=== PATIENT | male | born 1955 | race Caucasian/White ===

== ENCOUNTER 2018-09-23 12:50 | Inpatient (IN) | payer OTHER ==
--- NOTE | 2018-09-23 13:33 | ER Document Report ---
ED Respiratory Problem - General Chief Complaint: Shortness Of Breath Stated Complaint: SHORTNESS OF BREATH Time Seen by Provider: 09/23/18 13:06 Notes: This is a 63-year-old male brought over from primary care doctor's office for evaluation of shortness of breath. Patient currently being treated for what he thinks is pneumonia. On Levaquin. Went in to have a follow-up visit today and was noted to be hypoxic with low oxygen saturations as well as increased work of breathing. Sent here for further evaluation. Patient states that he has lower extremity edema, worsening shortness of breath. Is supposed to use a CPAP device but does not. Does smoke 2 packs of cigarettes a day. [place] obese 5 [place] 9 male who weighs 175 kg TRAVEL OUTSIDE OF THE [place] IN LAST 30 DAYS: No - HPI Patient complains to provider of: CHF, COPD, Short of breath Duration: Continuous, Worse/persistent - Related Data Allergies/Adverse Reactions: enoxaparin sodium [From Lovenox] Allergy (Severe, Verified 09/23/18 12:52) Hallucinations Past Medical History - General Information source: Patient - Social History Smoking Status: Current Every Day Smoker Frequency of alcohol use: None Drug Abuse: None Lives with: Spouse/Significant other Family History: Reviewed & Not Pertinent - Past Medical History Cardiac Medical History: Reports: Hx Hypertension - on meds Denies: Hx Coronary Artery Disease, Hx Heart Attack Pulmonary Medical History: Reports: Hx Sleep Apnea Denies: Hx Asthma, Hx Bronchitis, Hx COPD, Hx Pneumonia Neurological Medical History: Denies: Hx Cerebrovascular Accident, Hx Seizures Musculoskeletal Medical History: Reports Hx Arthritis - mild Psychiatric Medical History: Reports: Hx Anxiety, Hx Depression Past Surgical History: Reports: Hx Orthopedic Surgery - bilat knees - Immunizations Hx Diphtheria, Pertussis, Tetanus Vaccination: No Hx Pneumococcal Vaccination: 01/26/13 Review of Systems - Review of Systems Notes: Constitutional: denies: Chills, Diaphoresis, Fever, Malaise, Weakness EENT: denies: Eye discharge, Blurred vision, Tearing, Double vision, Nose congestion, Nose discharge, Throat swelling, Mouth pain Cardiovascular: denies: Palpitations, Heart racing, Chest pain patient does report dyspnea on exertion as well as orthopnea Respiratory: Planes of cough and increased shortness of breath. No hemoptysis. Gastrointestinal: denies: Abdominal pain, Diarrhea, Nausea, Vomiting, Black stools, bright red blood in stool Genitourinary: denies: Burning, Dysuria, Discharge, Frequency, Flank pain, Hematuria Musculoskeletal: denies: Joint pain, Joint swelling, Muscle pain, Muscle stiffness, back pain. He does complain of lower extremity edema with oozing of his legs Hematologic/Lymphatic: denies: Anemia, Easy bleeding, Easy bruising, Blood clots Neurological/Psychological: denies: Confusion, Dementia, Depression, Loss of consciousness Skin: No lesions, no masses, no skin breakdown, no abscesses Physical Exam - Vital signs Vitals: Temp Pulse Resp BP Pulse Ox 98.6 F 125 H 18 142/77 H 78 L 09/23/18 12:57 09/23/18 12:57 09/23/18 12:57 09/23/18 12:57 09/23/18 12:57 Interpretation: Normal - General General appearance: Appears well, Alert In distress: Mild - HEENT Head: Normocephalic, Atraumatic Eyes: Normal Pupils: PERRL - Respiratory Respiratory status: No respiratory distress, Tachypnea. No: Respiratory distress Chest status: Nontender Breath sounds: Normal Chest palpation: Normal - Cardiovascular Rhythm: Bradycardia Heart sounds: Normal auscultation Murmur: No - Abdominal Inspection: Normal Distension: No distension Bowel sounds: Normal Tenderness: Nontender Organomegaly: No organomegaly - Back Back: Normal, Nontender - Extremities General upper extremity: Normal inspection, Nontender, Normal color, Normal ROM , Normal temperature General lower extremity: Normal inspection, Nontender, Edema - Amount of edema to the bilateral lower extremities with pitting and oozing present., Normal color, Normal ROM, Normal temperature, Normal weight bearing. No: Ori's sign - Neurological Neuro grossly intact: Yes Cognition: Normal Orientation: AAOx4 [place] Coma Scale Eye Opening: Spontaneous [place] Coma Scale Verbal: Oriented [place] Coma Scale Motor: Obeys Commands [place] Coma Scale Total: 15 Speech: Normal Motor strength normal: LUE, RUE, LLE, RLE Sensory: Normal - Psychological Associated symptoms: Normal affect, Normal mood - Skin Skin Temperature: Warm Skin Moisture: Dry Skin Color: Normal Course - Re-evaluation Re-evalutation: 09/23/18 15:00 Patient demonstrating signs of congestive heart failure. Has large amount of lower extremity edema. Seems to be a little somnolent. Will get ABG and placed on CPAP or BiPAP at this time see if this will help. More likely patient will need to be admitted. 09/23/18 15:02 Laboratory 09/23/18 09/23/18 09/23/18 13:21 13:21 13:21 WBC 5.5 RBC 3.72 L Hgb 10.3 L Hct 31.1 L MCV 84 MCH 27.6 MCHC 33.0 RDW 14.8 H Plt Count 259 Seg Neutrophils % 72.5 Lymphocytes % 16.6 Monocytes % 7.8 Eosinophils % 2.4 Basophils % 0.7 Absolute Neutrophils 4.0 Absolute Lymphocytes 0.9 Absolute Monocytes 0.4 Absolute Eosinophils 0.1 Absolute Basophils 0.0 PT INR Carbonic Acid HCO3/H2CO3 Ratio ABG pH ABG pCO2 ABG pO2 ABG HCO3 ABG Total CO2 ABG O2 Saturation ABG Base Excess VBG pH VBG pCO2 VBG HCO3 VBG Base Excess FiO2 Sodium Cancelled Potassium Cancelled Chloride Cancelled Carbon Dioxide Cancelled Anion Gap Cancelled BUN Cancelled Creatinine Cancelled Est GFR ( Amer) Cancelled Est GFR (Non-Af Amer) Cancelled Glucose Cancelled Lactic Acid Calcium Cancelled Total Bilirubin Cancelled Direct Bilirubin Cancelled Neonat Total Bilirubin Cancelled Neonat Direct Bilirubin Cancelled Neonat Indirect Bili Cancelled AST Cancelled ALT Cancelled Alkaline Phosphatase Cancelled Creatine Kinase Cancelled CK-MB (CK-2) 3.67 Troponin I 0.016 NT-Pro-B Natriuret Pep 1140 H Total Protein Cancelled Albumin Cancelled 09/23/18 09/23/18 09/23/18 13:21 13:21 13:30 WBC RBC Hgb Hct MCV MCH MCHC RDW Plt Count Seg Neutrophils % Lymphocytes % Monocytes % Eosinophils % Basophils % Absolute Neutrophils Absolute Lymphocytes Absolute Monocytes Absolute Eosinophils Absolute Basophils PT 14.5 INR 1.08 Carbonic Acid Cancelled HCO3/H2CO3 Ratio Cancelled ABG pH Cancelled ABG pCO2 Cancelled ABG pO2 Cancelled ABG HCO3 Cancelled ABG Total CO2 Cancelled ABG O2 Saturation Cancelled ABG Base Excess Cancelled VBG pH VBG pCO2 VBG HCO3 VBG Base Excess FiO2 Cancelled Sodium Potassium Chloride Carbon Dioxide Anion Gap BUN Creatinine Est GFR ( Amer) Est GFR (Non-Af Amer) Glucose Lactic Acid 0.7 Calcium Total Bilirubin Direct Bilirubin Neonat Total Bilirubin Neonat Direct Bilirubin Neonat Indirect Bili AST ALT Alkaline Phosphatase Creatine Kinase CK-MB (CK-2) Troponin I NT-Pro-B Natriuret Pep Total Protein Albumin 09/23/18 13:30 WBC RBC Hgb Hct MCV MCH MCHC RDW Plt Count Seg Neutrophils % Lymphocytes % Monocytes % Eosinophils % Basophils % Absolute Neutrophils Absolute Lymphocytes Absolute Monocytes Absolute Eosinophils Absolute Basophils PT INR Carbonic Acid HCO3/H2CO3 Ratio ABG pH ABG pCO2 ABG pO2 ABG HCO3 ABG Total CO2 ABG O2 Saturation ABG Base Excess VBG pH 7.24 L VBG pCO2 71.6 H* VBG HCO3 30.0 VBG Base Excess 0.8 FiO2 Sodium Potassium Chloride Carbon Dioxide Anion Gap BUN Creatinine Est GFR ( Amer) Est GFR (Non-Af Amer) Glucose Lactic Acid Calcium Total Bilirubin Direct Bilirubin Neonat Total Bilirubin Neonat Direct Bilirubin Neonat Indirect Bili AST ALT Alkaline Phosphatase Creatine Kinase CK-MB (CK-2) Troponin I NT-Pro-B Natriuret Pep Total Protein Albumin 09/23/18 15:33 Patient appears to be in congestive heart failure. Lasix given. Will cycle troponins. Will admit to the hospitalist at this time. 09/23/18 15:[address] Hammond with cardiology. Will allow him to consult on the patient. I have not ordered an echocardiogram yet based on his request. 09/23/18 16:13 ABG consistent with significant respiratory acidosis with a PCO2 of 73. Hospitalist aware. - Vital Signs Vital signs: Temp Pulse Resp BP Pulse Ox 98.6 F 125 H 19 143/78 H 96 09/23/18 12:57 09/23/18 12:57 09/23/18 15:00 09/23/18 13:39 09/23/18 15:00 - Laboratory Result Diagrams: 09/23/18 13:21 09/23/18 15:10 Laboratory results interpreted by me: 09/23/18 09/23/18 09/23/18 13:21 13:21 13:30 RBC 3.72 L Hgb 10.3 L Hct 31.1 L RDW 14.8 H Carbonic Acid ABG pH ABG pCO2 ABG pO2 ABG HCO3 ABG Total CO2 ABG O2 Saturation VBG pH 7.24 L VBG pCO2 71.6 H* Carbon Dioxide NT-Pro-B Natriuret Pep 1140 H 09/23/18 09/23/18 14:20 15:10 RBC Hgb Hct RDW Carbonic Acid 2.21 H ABG pH 7.24 L ABG pCO2 73.4 H* ABG pO2 36.9 L* ABG HCO3 30.7 H ABG Total CO2 33.0 H ABG O2 Saturation 58.8 L VBG pH VBG pCO2 Carbon Dioxide 33 H NT-Pro-B Natriuret Pep - EKG Interpretation by [facility] EKG shows normal: Sinus rhythm, [place]. abnormal: Intervals - Mobitz type I AV block/wenckebach Critical Care Note - Critical Care Note Total time excluding time spent on procedures (mins): 60 Comments: Proxy a, tachycardia, congestive heart failure, consultation with specialist, coordination of care. Discharge - Discharge Clinical Impression: Acute respiratory failure with hypoxia Congestive cardiac failure Qualifiers: Heart failure type: unspecified Heart failure chronicity: acute Qualified Code( s): I50.9 - Heart failure, unspecified COPD (chronic obstructive pulmonary disease) Qualifiers: COPD type: unspecified COPD Qualified Code(s): J44.9 - Chronic obstructive pulmonary disease, unspecified Condition: Good Disposition: ADMITTED INPATIENT Admitting Provider: Hospitalist - [facility] Unit Admitted: IMCU Referrals: KINZA HOYT MD [Primary Care Provider] - Follow up as needed
--- NOTE | 2018-09-23 13:34 | RADIOLOGY REPORT (SQ) ---
EXAM DESCRIPTION: CHEST SINGLE VIEW COMPLETED DATE/TIME: 09/23/2018 1:16 pm REASON FOR STUDY: sob COMPARISON: 01/26/2013 EXAM PARAMETERS: NUMBER OF VIEWS: One view. TECHNIQUE: Single frontal radiographic view of the chest acquired. RADIATION DOSE: NA LIMITATIONS: None. FINDINGS: LUNGS AND PLEURA: Mild pulmonary edema. Small right pleural effusion. MEDIASTINUM AND HILAR STRUCTURES: No masses. Contour normal. HEART AND VASCULAR STRUCTURES: Cardiomegaly. BONES: No acute findings. HARDWARE: None in the chest. OTHER: No other significant finding. IMPRESSION: Cardiomegaly with pulmonary edema and small right pleural effusion. TECHNICAL DOCUMENTATION: JOB ID: [id number] [employer]- All Rights Reserved Reading location - IP/workstation name: [email or web address]
[2018-09-23] MEDS ORDERED: FUROSEMIDE INJ/PF 40 MG/4 ML SDV IV ONE ×2 (13:35→17:06)
[2018-09-23 13:42] LABS: ABSOLUTE EOSINOPHILS # (AUTO) 0.1 10^3/uL (0.0-0.6); ABSOLUTE LYMPHOCYTES (AUTO) 0.9 10^3/uL (0.5-4.7); ABSOLUTE MONOCYTES (AUTO) 0.4 10^3/uL (0.1-1.4); BASOPHILS % (AUTO) 0.7 % (0-2); EOSINOPHILS % (AUTO) 2.4 % (0-6); HEMATOCRIT 31.1 % (37.9-51.0); HEMOGLOBIN 10.3 g/dL (13.5-17.0); LYMPHOCYTES % (AUTO) 16.6 % (13-45); MEAN CORPUSCULAR HEMOGLOBIN 27.6 pg (27.0-33.4); MEAN CORPUSCULAR VOLUME 84 fl (80-97); MONOCYTES % (AUTO) 7.8 % (3-13); PLATELET COUNT 259 10^3/uL (150-450); RED BLOOD COUNT 3.72 10^6/uL (4.35-5.55); RED CELL DISTRIBUTION WIDTH 14.8 % (11.5-14.0); SEGMENTED NEUTROPHILS % (AUTO) 72.5 % (42-78); TOTAL CELLS COUNTED % (AUTO) 100 %; WHITE BLOOD COUNT 5.5 10^3/uL (4.0-10.5)
[2018-09-23 14:03] LABS: VENOUS BLOOD BASE EXCESS 0.8 mmol/L; VENOUS BLOOD PH 7.24 (7.30-7.42)
[2018-09-23 14:04] LABS: VENOUS BLOOD PCO2 71.6 mmHg (35-63)
[2018-09-23 14:10] LABS: INTERNATIONAL RATION (INR) 1.08; PROTHROMBIN TIME 14.5 SEC (11.4-15.4)
[2018-09-23 14:16] LABS: CREATINE KINASE MB 3.67 ng/mL (<4.55); TROPONIN I 0.016 ng/mL
[2018-09-23] MEDS ORDERED: METHYLPREDNISOLONE INJ 125 MG/2 ML SDV IV ONE (15:22)
[2018-09-23] MEDS ORDERED: ONDANSETRON HCL INJ/PF 4 MG/2 ML SDV IV PRN (15:44)
[2018-09-23] MEDS ORDERED: DOCUSATE SODIUM 100 MG CAPSULE PO PRN (15:44)
[2018-09-23] MEDS ORDERED: ACETAMINOPHEN 325 MG TABLET PO PRN (15:44)
[2018-09-23] MEDS ORDERED: IPRATROPIUM/ALBUTEROL 0.5-2.5 MG/3 ML AMPUL NEB PRN (15:44)
[2018-09-23] MEDS ORDERED: TEMAZEPAM 7.5 MG CAPSULE PO PRN (15:44)
[2018-09-23] MEDS ORDERED: ALBUTEROL SULFATE 0.083% NEB 2.5 MG/3 ML AMPUL NEB PRN (15:44)
[2018-09-23 15:46] LABS: ALANINE AMINOTRANSFERASE 24 U/L (21-72); ALBUMIN 3.7 g/dL (3.5-5.0); ALKALINE PHOSPHATASE 98 U/L (38-126); ANION GAP 9 (5-19); ASPARTATE AMINO TRANSFERASE 20 U/L (17-59); BILIRUBIN,DIRECT 0.2 mg/dL (0.0-0.4); BILIRUBIN,TOTAL 0.3 mg/dL (0.2-1.3); BLOOD UREA NITROGEN 13 mg/dL (7-20); CALCIUM 9.2 mg/dL (8.4-10.2); CARBON DIOXIDE 33 mmol/L (22-30); CHLORIDE 101 mmol/L (98-107); CREATINE KINASE 104 U/L (55-170); GLUCOSE 99 mg/dL (75-110); POTASSIUM 4.6 mmol/L (3.6-5.0); SODIUM 143.1 mmol/L (137-145); TOTAL PROTEIN 7.2 g/dL (6.3-8.2)
[2018-09-23] MEDS ORDERED: ALBUTEROL SULFATE 0.083% NEB 2.5 MG/3 ML AMPUL NEB ONE (15:50)
[2018-09-23 16:05] LABS: ARTERIAL BLOOD FIO2 4L
[2018-09-23 16:06] LABS: ARTERIAL BLOOD H2CO3 2.21 mmol/L (1.05-1.35); ARTERIAL BLOOD HCO3 30.7 mmol/L (20-24); ARTERIAL BLOOD O2 SATURATION 58.8 % (94-98); ARTERIAL BLOOD PH 7.24 (7.35-7.45)
[2018-09-23 16:09] LABS: ARTERIAL BLOOD PCO2 73.4 mmHg (35-45); ARTERIAL BLOOD PO2 36.9 mmHg (80-100)
[2018-09-23] MEDS ORDERED: ETOMIDATE INJ/PF 20 MG/10 ML SDV IV ONE (16:56)
[2018-09-23 17:01] LABS: VENOUS BLOOD BASE EXCESS 4.3 mmol/L; VENOUS BLOOD HCO3 33.9 mmol/L (20-32); VENOUS BLOOD PH 7.24 (7.30-7.42)
[2018-09-23] MEDS ORDERED: NITROGLYCERIN 2% OINTMENT 1 GM PACKET TP ONE (17:04)
[2018-09-23 17:49] LABS: ARTERIAL BLOOD BASE EXCESS 3.7 mmol/L; ARTERIAL BLOOD HCO3 31.7 mmol/L (20-24); ARTERIAL BLOOD O2 SATURATION 94.8 % (94-98); ARTERIAL BLOOD PCO2 66.5 mmHg (35-45); ARTERIAL BLOOD PO2 83.6 mmHg (80-100); ARTERIAL BLOOD TOTAL CO2 33.7 mmol/L (23-27)
[2018-09-23 17:52] LABS: ARTERIAL BLOOD FIO2 35%
[2018-09-23 20:16] VITALS: BP 161/79
--- NOTE | 2018-09-23 21:56 | EKG REPORT ---
SEVERITY:- ABNORMAL ECG - SINUS RHYTHM MOBITZ I AV BLOCK (WENCKEBACH) BORDERLINE IVCD WITH LAD CONSIDER ANTERIOR INFARCT : Confirmed by: Adriane Snow MD 23-Sep-2018 21:55:19
--- NOTE | 2018-09-23 21:56 | EKG REPORT ---
SEVERITY:- ABNORMAL ECG - SINUS BRADYCARDIA MOBITZ II AV BLOCK FIRST DEGREE AV BLOCK PROBABLE LEFT ATRIAL ABNORMALITY NONSPECIFIC INTRAVENTRICULAR CONDUCTION DELAY : Confirmed by: Adriane Snow MD 23-Sep-2018 21:55:03
[2018-09-23] MEDS ORDERED: HEPARIN SOD (PORCINE) 5,000 UNIT/ML 1 ML SYRINGE SUBCUT SCH (22:00)
== END 2018-09-23 20:10 | disposition short-term general hospital (02) | DRG 189 ==
LOC: ER 12:50 → EH 16:03
PROVIDERS: ADMIT Hospitalist; ATTEND Hospitalist
DX: J96.01 Acute respiratory failure with hypoxia (principal); J18.9 Pneumonia, unspecified organism; E87.2 Acidosis; Z68.43 Body mass index [BMI] 50.0-59.9, adult; J44.9 Chronic obstructive pulmonary disease, unspecified; I50.9 Heart failure, unspecified; I11.0 Hypertensive heart disease with heart failure; F41.8 Other specified anxiety disorders; R00.1 Bradycardia, unspecified; G47.30 Sleep apnea, unspecified; E66.8 Other obesity; F17.210 Nicotine dependence, cigarettes, uncomplicated
CPT/HCPCS: 36415; 36600; 71045; 80053; 82550; 82553; 82803; 83605; 83880; 84484; 85025; 85610; 85730; 87040; 87077; 93005; 93010; 94660; 96374; 96375; 99291; J1940; J2930

== ENCOUNTER 2018-11-08 16:23 | Emergency (ER) | payer BC, OTHER ==
--- NOTE | 2018-11-08 17:55 | ER Document Report ---
ED Medical Screen (RME) - General Chief Complaint: Leg Pain Stated Complaint: LEFT LEG PAIN Time Seen by Provider: 11/08/18 17:38 Mode of Arrival: Ambulatory Information source: Patient TRAVEL OUTSIDE OF THE [place] IN LAST 30 DAYS: No - HPI Patient complains to provider of: Left leg pain and a positive culture. Onset: Other - Is a gentleman who presents from his toucher up office for concern of a positive wound culture in his left lower extremity. He had a chronic wound on that left lower extremity which she is been having treated over the last 2 months. He has been followed by his primary physician as well as a wound clinic at which time they saw him and told him that the last culture had been a contaminant at which time Pseudomonas as well as a strep had grown out of the wound. His toucher up noted that the wound again grew Pseudomonas today and told him to come to the emergency department as he had been on ciprofloxacin for this previously. He denies any fevers or chills, worsening of the wound or pain and swelling in the leg. - Related Data Allergies/Adverse Reactions: enoxaparin sodium [From Lovenox] Allergy (Severe, Verified 11/08/18 17:26) Hallucinations Past Medical History - General Information source: Patient - Social History Chew tobacco use (# tins/day): No Frequency of alcohol use: None Drug Abuse: None - Past Medical History Cardiac Medical History: Reports: Hx Hypertension - on meds Denies: Hx Coronary Artery Disease, Hx Heart Attack Pulmonary Medical History: Reports: Hx Sleep Apnea Denies: Hx Asthma, Hx Bronchitis, Hx COPD, Hx Pneumonia Neurological Medical History: Denies: Hx Cerebrovascular Accident, Hx Seizures Renal/ Medical History: Denies: Hx Peritoneal Dialysis Musculoskeltal Medical History: Reports Hx Arthritis - mild Psychiatric Medical History: Reports: Hx Anxiety, Hx Depression Past Surgical History: Reports: Hx Orthopedic Surgery - bilat knees - Immunizations Hx Diphtheria, Pertussis, Tetanus Vaccination: No Review of Systems - Review of Systems -: Yes All other systems reviewed and negative Physical Exam - Vital signs Vitals: Temp Pulse Resp BP Pulse Ox 98.9 F 67 18 137/73 H 94 11/08/18 16:36 11/08/18 16:36 11/08/18 16:36 11/08/18 16:36 11/08/18 16:36 - General General appearance: Appears well, Alert - HEENT Head: Normocephalic, Atraumatic Eyes: Normal Pupils: PERRL - Respiratory Respiratory status: No respiratory distress Chest status: Nontender Breath sounds: Normal Chest palpation: Normal - Cardiovascular Rhythm: Irregularly irregular Heart sounds: Normal auscultation - Abdominal Inspection: Morbidly Obese Distension: No distension Bowel sounds: Normal Tenderness: Nontender Organomegaly: No organomegaly - Back Back: Normal - Extremities General upper extremity: Normal inspection, Nontender, Normal color, Normal ROM, Normal temperature General lower extremity: Other - The left lower extremity demonstrates an eroded clean based wound over the mid calf along the lateral aspect of the leg with pink josh tissue surrounding the edge as well as granulation tissue in the inferior aspect with some well-appearing exudate overlying, there is no obvious fluctuance, no purulence, Course - Re-evaluation Re-evalutation: 11/08/18 21:25 This 63-year-old man is a chronic wound for which she is followed by wound clinic as well as a primary physician was seen by toucher up today who was concerned that his wound had grown out Pseudomonas prompting them to send him in the emergency department. This gentleman does note that his wound has been improved over the last month. He has been taking antibiotics has no pain there are no worsening fevers no chills. His has been dressing at home. On examination the wound is well-appearing, is notable that he does have improvement from previously. Looking at sensitivities previously the ciprofloxacin is not effective against a specific Pseudomonas strain, he does have what appears to be a Pseudomonas which is responsive to cephalosporins. The staff is also amenable to cephalosporins. These are potentially contaminated as well as previously stated by the wound clinic. Because of this I think this patient is safe for discharge with outpatient management of his wounds. Incidentally noted prior to discharge that this patient had intermittent bradycardia though the pulse oximeter which was recording his heart rate was limited. It appears that this patient has had atrial fibrillation in the past with low heart rate he says this is normal for him has no symptoms do not believe it is worth addressing at this time as this is not the patient's complaint. Current plan will be for this patient undergo discharge with return precautions and follow-up in clinic as previously scheduled. - Vital Signs Vital signs: Temp Pulse Resp BP Pulse Ox 98.9 F 52 L 20 128/64 H 97 11/08/18 16:36 11/08/18 17:51 11/08/18 17:51 11/08/18 17:51 11/08/18 17:51 Doctor's Discharge - Discharge Clinical Impression: Positive culture finding Leg wound, left Qualifiers: Encounter type: subsequent encounter Qualified Code(s): S81.802D - Unspecified open wound, left lower leg, subsequent encounter Condition: Good Disposition: HOME, SELF-CARE Additional Instructions: You were seen today in the emergency department for your positive wound culture. You had evaluation including a physical exam. I think that your wound grew a positive culture from possibly contaminant however we will change her antibiotic to cover it anyway. Follow-up next week for a wound check. Return for worsening fevers or chills. Prescriptions: Cephalexin Monohydrate [Keflex 500 mg Capsule] 500 mg PO Q6H 7 Days #28 capsule Referrals: MIRZA BURRELL PA [NO LOCAL MD] - Follow up as needed
[2018-11-08 18:11] VITALS: BP 128/64
== END 2018-11-08 17:51 | disposition home or self-care (01) ==
LOC: ER 16:23
DX: R89.5 Abnormal microbiological findings in specimens from other organs, systems and tissues (principal); S81.802A Unspecified open wound, left lower leg, initial encounter; X58.XXXA Exposure to other specified factors, initial encounter; I10 Essential (primary) hypertension; Z88.8 Allergy status to other drugs, medicaments and biological substances
CPT/HCPCS: 99283

== ENCOUNTER → 2018-11-28 | Outpatient (CLI) | payer BC ==
[2018-11-28 14:42] LABS: ABSOLUTE EOSINOPHILS # (AUTO) 0.3 10^3/uL (0.0-0.6); ABSOLUTE LYMPHOCYTES (AUTO) 2.2 10^3/uL (0.5-4.7); ABSOLUTE MONOCYTES (AUTO) 0.5 10^3/uL (0.1-1.4); BASOPHILS % (AUTO) 0.5 % (0-2); EOSINOPHILS % (AUTO) 4.4 % (0-6); HEMATOCRIT 36.8 % (37.9-51.0); HEMOGLOBIN 12.5 g/dL (13.5-17.0); LYMPHOCYTES % (AUTO) 31.6 % (13-45); MEAN CORPUSCULAR HEMOGLOBIN 26.3 pg (27.0-33.4); MEAN CORPUSCULAR HGB CONC 33.9 g/dL (32.0-36.0); MEAN CORPUSCULAR VOLUME 78 fl (80-97); MONOCYTES % (AUTO) 7.5 % (3-13); PLATELET COUNT 191 10^3/uL (150-450); RED BLOOD COUNT 4.74 10^6/uL (4.35-5.55); RED CELL DISTRIBUTION WIDTH 16.2 % (11.5-14.0); TOTAL CELLS COUNTED % (AUTO) 100 %; WHITE BLOOD COUNT 7.1 10^3/uL (4.0-10.5)
[2018-11-28 15:08] LABS: ALANINE AMINOTRANSFERASE 19 U/L (21-72); ALBUMIN 4.2 g/dL (3.5-5.0); ALKALINE PHOSPHATASE 102 U/L (38-126); ANION GAP 7 (5-19); ASPARTATE AMINO TRANSFERASE 21 U/L (17-59); BILIRUBIN,DIRECT 0.3 mg/dL (0.0-0.4); BILIRUBIN,TOTAL 0.3 mg/dL (0.2-1.3); BLOOD UREA NITROGEN 17 mg/dL (7-20); C-REACTIVE PROTEIN 8.4 mg/L (<10.0); CALCIUM 9.3 mg/dL (8.4-10.2); CARBON DIOXIDE 31 mmol/L (22-30); CHLORIDE 102 mmol/L (98-107); GLUCOSE 100 mg/dL (75-110); POTASSIUM 4.1 mmol/L (3.6-5.0); SODIUM 140.3 mmol/L (137-145); TOTAL PROTEIN 7.4 g/dL (6.3-8.2)
[2018-11-28 15:43] LABS: ERYTHROCYTE SEDIMENTATION RATE 29 mm/hr (0-20)
== END ==
LOC: OD 13:42
PROVIDERS: ATTEND Nurse Practitioner
DX: L97.222 Non-pressure chronic ulcer of left calf with fat layer exposed (principal)
CPT/HCPCS: 36415; 80053; 85025; 85652; 86140

== ENCOUNTER → 2018-12-02 | Outpatient (CLI) | payer BC ==
--- NOTE | 2018-12-03 11:23 | XCELERA REPORT ---
[address] [address] Lower Extremity Venous Evaluation Procedure: A bilateral duplex scan of the lower extremity veins was performed. The evaluation included responses to compression and other maneuvers with patient in the supine and standing positions to assess venous insufficiency. Right Sided Venous Evaluation Deep venous system evaluatiion shows patent veins with no obstruction or significant reflux identified. Sapheno Femoral junction: no reflux. Femoral vein reflux: no reflux. Greater Saphenous vein, Proximal thigh: reflux: no reflux. Greater Saphenous vein, Distal thigh: reflux: no reflux. Greater Saphenous vein, Proximal below knee: reflux: no reflux. No significant Perforators identified. Left Sided Venous Evaluation Deep venous system evaluatiion shows patent veins with no obstruction or significant reflux identified. Sapheno Femoral junction: no reflux. Femoral vein reflux: no reflux. Greater Saphenous vein, Proximal thigh: reflux: no reflux. Greater Saphenous vein, Mid thigh: reflux: 2seconds. 7.8 mm. Greater Saphenous vein, Distal thigh: reflux: 1.5 seconds.6.2 mm. Greater Saphenous vein, Proximal below knee: reflux: no reflux. Interpretation Summary No duplex evidence of DVT or obstruction in the bilateral lower extremities. No significant deep or superficial reflux on the right. Significant Greater saphenous reflux on the left. With ulcer on left, may be amenable to ablation. Name: SUSANA HOWARD Age: 63 yrs Gender: Male : 1955 Patient Status: Outpatient Patient Location: Study Date: 12/02/2018 10:50 AM Reason For Study: ULCER Ordering Physician: AREN PERSAUD Performed By: Obey Elizondo : AREN PERSAUD > Phoenix Somers
--- NOTE | 2018-12-03 11:25 | XCELERA REPORT ---
[address] [address] Lower Extremity Arterial Evaluation Name: SUSANA HOWARD Age: 63 yrs Gender: Male : 1955 Patient Status: Outpatient Patient Location: Study Date: 12/02/2018 10:19 AM Procedure: A color flow and duplex scan of the lower extremity arteries was performed bilaterally with velocity and waveform anaylsis. Reason For Study: ULCER Ordering Physician: AREN PERSAUD Performed By: Obey Elizondo Measurements and Calculations Right Left SENIOR RISK ANALYST PSV 122.6 136.7 cm/sec Prox PFA PSV 81.7 82.2 cm/sec Prox SFA PSV 133.6 cm/sec Mid SFA PSV -117.1 -102.5cm/sec Dist SFA PSV -119.4 cm/sec Prox Pop A PSV 96.8 100.4 cm/sec Dist CLARISSE PSV -60.9 -76.0 cm/sec Dist MOTION PICTURE ACTOR PSV 97.0 152.9 cm/sec Gilbert Pedis PSV 32.3 -104.2cm/sec Right Side Arterial Evaluation Normal velocity and triphasic waveforms noted from the Common Femoral artery to the infrageniculate vessels . Ankle Brachial index not obtained due to edema. Left Side Arterial Evaluation Normal velocity and triphasic waveforms noted from the Common Femoral artery to the infrageniculate vessels . Ankle Brachial index not obtained due to bandaging. Interpretation Summary No hemodynamically significant lesions noted in the bilateral lower extremity arteries, on duplex imaging, at rest. : AREN PERSAUD > Phoenix Somers
== END ==
LOC: SP 10:04
PROVIDERS: ATTEND Nurse Practitioner
DX: L97.222 Non-pressure chronic ulcer of left calf with fat layer exposed (principal)
CPT/HCPCS: 93925; 93970